=== PATIENT | female | born 1990 | race Caucasian/White ===

== ENCOUNTER 2020-06-08 19:09 | Emergency (ER) | payer BC, SELFPAY ==
[2020-06-08 19:15] VITALS: BP 150/85; PULSE 98; RESP 14; TEMP 37; O2SAT 98
--- NOTE | 2020-06-08 19:41 | ED.URI ---
HPI - URI/Sore Throat General Chief Complaint: Upper Respiratory Infection Stated Complaint: sore throat Time Seen by Provider: 06/08/20 19:25 Source: patient and RN notes reviewed Mode of arrival: ambulatory Limitations: no limitations History of Present Illness HPI Narrative: Patient presents today with a sore throat for 2 days with some mild postnasal drainage. Denies any additional symptoms to include fever, cough, ear pain, congestion or rhinorrhea. Denies shortness of breath or difficulty swallowing. She currently rates her pain 4/10 and states it is intermittent. She has tried no [id number] interventions prior to arrival. No known COVID-19 exposure. MD elicited complaint: sore throat Related Data Home Medications Medication Instructions Recorded Confirmed sertraline 25 mg PO DAILY 06/08/20 06/08/20 Allergies Allergy/AdvReac Type Severity Reaction Status Date / Time Penicillins Allergy Intermediate Hives / Verified 06/08/20 19:25 Red Face Review of Systems Review of Systems: Narrative: CONSTITUTIONAL: Denies body aches, fever, chills, or sweats. EYES: Denies visual changes, redness, or discharge. ENT: Denies rhinorrhea, congestion, or otalgia. + Sore throat, postnasal drip CARDIOVASCULAR: Denies chest pain, palpitations, or edema. RESPIRATORY: Denies cough or dyspnea. GASTROINTESTINAL: Denies abdominal pain, nausea, vomiting, or diarrhea. GENITOURINARY: Denies dysuria or hematuria. SKIN: Denies rash, itching, or wounds. MUSCULOSKELETAL: Denies back pain, joint pain, or myalgia. NEUROLOGIC: Denies headache, numbness, tingling, or weakness. PSYCH: Denies depression or anxiety. FORMERLY [facility] Past Medical History Medical History (Updated 06/08/20 @ 19:46 by Anna Kwok, FISCAL ACCOUNTING CLERK, ) Aortic regurgitation Borderline diabetic Mitral valve prolapse Comments At time of signature, I have reviewed and agree with nursing past medical, surgical, social and family history unless otherwise noted. Please see nursing chart for further information. There is no relevant family history pertinent to the presenting complaint Exam Narrative: Exam Narrative: GENERAL: Well-appearing, well-nourished, and in no acute distress. HEAD: Normocephalic, atraumatic. EYES: EOMI. No redness or drainage. Conjunctivae normal. ENT: Mucous membranes pink and moist. Nares clear. No rhinorrhea. TMs normal bilaterally. Throat mildly erythematous without edema or exudate. Uvula midline. NECK: Normal AROM. Supple. No lymphadenopathy. CHEST: No respiratory distress. Clear to auscultation. HEART: Regular rate and rhythm. No murmur appreciated. Normal peripheral pulses. EXTREMITIES: Normal range of motion. No edema. SKIN: Warm, dry, no rash. Capillary refill normal. Normal skin turgor. NEURO: No focal deficits. Alert and oriented x3. Gait steady. PSYCH: Normal affect. No signs of depression or anxiety. Course Course Emergency Course: Offered COVID-19 testing order and patient accepted. Order faxed to finished stock inspector. Vital Signs Vital signs: Vital Signs Temperature 98.6 F 06/08/20 19:15 Pulse Rate 98 06/08/20 19:15 Respiratory Rate 14 06/08/20 19:15 Blood Pressure 150/85 H 06/08/20 19:15 Pulse Oximetry 98 06/08/20 19:15 Temperature 98.6 F 06/08/20 19:15 Pulse Rate 98 06/08/20 19:15 Respiratory Rate 14 06/08/20 19:15 Blood Pressure 150/85 H 06/08/20 19:15 Pulse Oximetry 98 06/08/20 19:15 Reviewed. Pt has been instructed to follow up with her PCP regarding her elevated blood pressure today. MDM - URI/Sore Throat Differential Diagnosis Differential diagnosis: Likely upper respiratory infection, otitis media, sinusitis, viral infection, pharyngitis and other (Strep throat, COVID-19) Lab Data Labs: Strep Screen Presumptive Negative *(Reference Range: Negative)* Critical Care Time Critical Care Time Critical Care Time: No Discharge Plan Discharge Clinical I
== END 2020-06-08 19:50 | disposition home or self-care (01) ==
PROVIDERS: Emergency Provider Nurse Practitioner; PCP Nurse Practitioner Family
DX: J02.9 Acute pharyngitis, unspecified (principal); I34.1 Nonrheumatic mitral (valve) prolapse; F41.9 Anxiety disorder, unspecified
CPT/HCPCS: 87081; 87880; 99213; G0463

== ENCOUNTER 2020-06-10 07:19 | Outpatient (NON) | payer BC, SELFPAY ==
[2020-06-12 01:36] LABS: SARS-CoV-2 RNA PCR Negative
== END 2020-06-10 07:20 ==
PROVIDERS: PCP Nurse Practitioner Family; Visit Provider Nurse Practitioner
DX: Z20.828 Contact with and (suspected) exposure to other viral communicable diseases (principal); J02.9 Acute pharyngitis, unspecified
CPT/HCPCS: 87635; C9803; U0003

== ENCOUNTER 2021-12-08 10:38 | Emergency (ER) | payer OTHER, SELFPAY ==
--- NOTE | ~2021-12-08 | XR_ITS ---
XR chest 2V DATE: 12/08/2021 10:59 INDICATION: Cough, chest tightness. Covid-positive. TECHNIQUE: PA and lateral views COMPARISON: None FINDINGS: Normal heart size. No hilar or mediastinal enlargement. No pulmonary infiltrate or consolid ation, pleural effusion or pulmonary mass congestion or pneumothorax. Status post cholecystectomy. IMPRESSION: No active cardiac pulmonary disease Status post cholecystectomy Reviewed, dictated and finalized at location A. GUIDE
--- NOTE | 2021-12-08 10:41 | ED.URI ---
HPI - URI/Sore Throat General Chief Complaint: Upper Respiratory Infection Stated Complaint: Day 9 of Covid /worried pnuemonia Time Seen by Provider: 12/08/21 10:41 Source: patient and RN notes reviewed History of Present Illness HPI Narrative: Patient is a 31-year-old female presents the urgent care with complaints of post-COVID cough. Patient states that she was diagnosed with COVID approximately 8 or 9 days ago and has had a continuous cough. Denies any fevers, shortness of breath or chest pain. Patient has been taking her daily allergy medication. No other acute complaints. No acute distress noted. Patient aware of the plan of care. Some parts of this dictation were generated by voice recognition software and may contain typographical and/or grammatical inaccuracies. Related Data Home Medications Medication Instructions Recorded Confirmed sertraline 25 mg PO DAILY 06/08/20 07/03/21 Allergies Allergy/AdvReac Type Severity Reaction Status Date / Time Penicillins Allergy Intermediate Hives / Verified 12/08/21 10:58 Red Face Review of Systems Review of Systems: CONSTITUTIONAL: Denies fever, chills, or sweats. EYES: Denies visual changes, redness, or discharge. ENT: Denies rhinorrhea, congestion, sore throat, or otalgia. CARDIOVASCULAR: Denies chest pain, palpitations, or edema. RESPIRATORY: Reports of nonproductive cough without dyspnea GASTROINTESTINAL: Denies abdominal pain, nausea, vomiting, or diarrhea. GENITOURINARY: Denies dysuria or hematuria. SKIN: Denies rash or itching. MUSCULOSKELETAL: Denies back pain, joint pain, or myalgia. NEUROLOGIC: Denies headache, numbness, or weakness. All other systems reviewed are negative, except as documented in HPI. [facility] Past Medical History Medical History Aortic regurgitation Borderline diabetic Mitral valve prolapse Social History Social History (Updated 07/03/21 @ 15:21 by Idalmis Nicole CMA) Smoking status: Never smoker Alcohol intake: never Substance use: never Comments At the time of my signature, I reviewed and agree with the nursing past medical, surgical, social, and family history. There is no relevant family history pertinent to the patient complaint. Exam Narrative: GENERAL: This is a well-nourished, well-developed patient, in no apparent distress. HEAD: normocephalic, atraumatic. EYES: PERRL. Sclera clear/white. Vision is grossly intact. EARS: External ears normal, auditory canals clear and without drainage, TMs normal without perforation. Hearing grossly intact. NOSE: External nose normal with no obvious nasal discharge, nares without redness, no rhinorrhea. THROAT: Mucous membranes moist, posterior pharynx clear. Mild postnasal drainage NECK: Neck supple CARDIOVASCULAR: Regular rate and rhythm without murmurs, gallops, or rubs. RESPIRATORY: Clear to auscultation. Breath sounds equal bilaterally. No wheezes, rales, or rhonchi. SKIN: warm, intact with no suspicious lesions or rash, good texture and turgor. NEURO: awake, alert, and oriented to person, place and time. There were no obvious focal neurologic abnormalities. EXTREMITIES: No clubbing, cyanosis, or edema. Course Course Level of Care: Express Care Visit Vital Signs Vital signs: Vital Signs Temperature 99.1 F 12/08/21 10:45 Pulse Rate 98 12/08/21 10:45 Respiratory Rate 20 12/08/21 10:45 Blood Pressure 131/75 12/08/21 10:45 Pulse Oximetry 99 12/08/21 10:45 Temperature 99.1 F 12/08/21 10:45 Pulse Rate 98 12/08/21 10:45 Respiratory Rate 20 12/08/21 10:45 Blood Pressure 131/75 12/08/21 10:45 Pulse Oximetry 99 12/08/21 10:45 Reviewed MDM - URI/Sore Throat MDM Narrative Medical decision making narrative: Reviewed x-ray results with the patient. She is aware that x-ray was negative for pneumonia or any abnormality. Patient is aware that postviral cough can last approximate
[2021-12-08 10:45] VITALS: BP 131/75; PULSE 98; RESP 20; TEMP 37.3; O2SAT 99
== END 2021-12-08 11:15 | disposition home or self-care (01) ==
PROVIDERS: Emergency Provider Nurse Practitioner Family; PCP Nurse Practitioner Family
DX: R05.9 Cough, unspecified (principal); U09.9 Post COVID-19 condition, unspecified; I34.1 Nonrheumatic mitral (valve) prolapse; I35.1 Nonrheumatic aortic (valve) insufficiency
CPT/HCPCS: 71046; 99213; G0463

== ENCOUNTER 2022-03-28 16:53 | Emergency (ER) | payer OTHER, SELFPAY ==
--- NOTE | 2022-03-28 16:59 | ED.URI ---
HPI - URI/Sore Throat General Chief Complaint: Upper Respiratory Infection Stated Complaint: sore throat Source: patient and RN notes reviewed Mode of arrival: ambulatory Limitations: no limitations History of Present Illness MD elicited complaint: cough and sore throat Related Data Home Medications Medication Instructions Recorded Confirmed sertraline 25 mg PO DAILY 06/08/20 03/28/22 Allergies Allergy/AdvReac Type Severity Reaction Status Date / Time Penicillins Allergy Intermediate Hives / Verified 12/08/21 10:58 Red Face Review of Systems Review of Systems: CONSTITUTIONAL: Denies malaise, chills, sweats, or fever. EYES: Denies visual changes, redness, or discharge. ENT: Reports rhinorrhea, congestion, sinus pain, otalgia and sore throat. CARDIOVASCULAR: Denies chest pain, palpitations, or edema. RESPIRATORY: Reports cough. Denies dyspnea. GASTROINTESTINAL: Denies abdominal pain, nausea, vomiting, diarrhea SKIN: Denies rash or itching. MUSCULOSKELETAL: Denies myalgia. NEUROLOGIC: Denies headache. All systems reviewed & are unremarkable except as noted in HPI and below PMFSH Past Medical History Medical History Aortic regurgitation Borderline diabetic Mitral valve prolapse Social History Social History (Updated 07/03/21 @ 15:21 by Idalmis Nicole CMA) Smoking status: Never smoker Alcohol intake: never Substance use: never Comments At time of signature, agree with nursing past medical, surgical, social and family history. There is no relevant family history pertinent to the presenting complaint Exam Narrative: GENERAL: Well-appearing, well-nourished, and in no acute distress. HEAD: Normocephalic EYES: PERRLA, conjunctivae clear ENT: Nares clear, turbinates edematous and erythematous, clear discharge. Mucous membranes moist. TM pearly rankin with dull light reflex bilaterally; no tragal tenderness. Oropharynx not erythematous without lesions. Tonsils not enlarged and without exudate, no drooling, no hoarseness, no trismus, uvula midline. NECK: Supple. No lymphadenopathy CHEST: Clear to auscultation, breath sounds equal. No wheezing, rhonchi, rales, or stridor. No respiratory distress, speaks in full sentences. HEART: Regular rate and rhythm. No murmur heard. SKIN: Warm, dry, no rash. NEURO: Alert and oriented x3. PSYCH: Normal mood and affect Course Course Emergency Course: Patient is aware of diagnosis, understands and agrees to treatment plan. Anticipatory guidance given. Patient agrees to follow-up as directed and is aware of reasons to seek care at the emergency department. Portions of this record may have been created with voice recognition software Level of Care: Express Care Visit Vital Signs Vital signs: Reviewed. MDM - URI/Sore Throat MDM Narrative Medical decision making narrative: Differential diagnosis considered: Isbell virus, strep pharyngitis, allergic rhinitis, upper respiratory tract infection, sinusitis, rhinosinusitis, nasopharyngitis. viral pharyngitis, otitis media, otitis externa, pneumonia, bronchitis, viral cough syndrome, viral syndrome, and influenza. Exam findings show no acute concerns or changes; patient is non-toxic appearing and is in no distress. Patient is appropriate for outpatient treatment and follow-up. Lab Data Attestation: I reviewed the patient's lab results. Critical Care Time Critical Care Time Critical Care Time: No Discharge Plan Discharge Clinical Impression: Upper respiratory infection Patient Disposition: Home, Self-Care Condition: Stable Instructions: Upper Respiratory Infection (ED) Additional Instructions: Your rapid strep swab was negative today at [facility]. A throat culture will be sent to the laboratory for further testing. If the test is positive, you will receive a phone call within 48 hours and an appropriate antibiotic will be initiated at that time.
[2022-03-28 17:00] VITALS: BP 128/77; PULSE 95; RESP 16; TEMP 36.7; O2SAT 100
== END 2022-03-28 17:36 | disposition home or self-care (01) ==
PROVIDERS: Emergency Provider Nurse Practitioner; PCP Nurse Practitioner Family
DX: J06.9 Acute upper respiratory infection, unspecified (principal); I34.1 Nonrheumatic mitral (valve) prolapse; I35.1 Nonrheumatic aortic (valve) insufficiency
CPT/HCPCS: 87081; 87880; 99213; G0463

== ENCOUNTER 2022-06-28 10:14 | Emergency (ER) | payer OTHER, SELFPAY ==
--- NOTE | ~2022-06-28 | XR_ITS ---
XR knee RT min 4V DATE: 06/28/2022 10:39 INDICATION: Fall. Right knee generalized pain TECHNIQUE: 4 views including crosstable lateral COMPARISON: None FINDINGS: No fracture or dislocation or joint effusion. No periosteal reaction or bone destruction. J oint spaces are preserved. No radiopaque intra-articular loose body or chondrocalcinosis. IMPRESSION: Negative Reviewed, dictated and finalized at location B. IMPRESSION: Negative
[2022-06-28 10:18] VITALS: BP 130/74; PULSE 80; RESP 18; TEMP 36.6; O2SAT 100
--- NOTE | 2022-06-28 10:47 | ED.LOWEXIN ---
HPI - Extremity Injury (Lower) General Chief Complaint: Extremity Injury, Lower Stated Complaint: right knee injury Time Seen by Provider: 06/28/22 10:47 Source: patient, RN notes reviewed and old records reviewed Mode of arrival: ambulatory Limitations: no limitations History of Present Illness HPI Narrative: 32 year old female who presents to express care with complaints of falling down her step at home this morning. Patient reports that she rolled her ankle while having wedge shoes on and fell directly onto her right knee.Patient voices pain to the anterior aspect of her right knee with abrasion noted on anterior knee. Patient reports that she is able to apply weight to her right leg and is able to bend knee without acute pain.Patient reports pain increases when not active. MD complaint: knee injury Onset (ago): hour(s) (1) Injury: Right: knee (anterior) Type of Injury: blunt Treatments prior to arrival: cold therapy and other (Tylenol) Related Data Home Medications Medication Instructions Recorded Confirmed sertraline 25 mg tablet 25 mg PO DAILY 06/08/20 06/28/22 Allergies Allergy/AdvReac Type Severity Reaction Status Date / Time Penicillins Allergy Intermediate Hives / Verified 06/28/22 10:40 Red Face Review of Systems Review of Systems: CONSTITUTIONAL: Denies fever, chills, or sweats. EYES: Denies visual changes, redness, or discharge. ENT: Denies rhinorrhea, congestion, sore throat, or otalgia. CARDIOVASCULAR: Denies chest pain, palpitations, or edema. RESPIRATORY: Denies cough or dyspnea. GASTROINTESTINAL: Denies abdominal pain, nausea, vomiting, or diarrhea. GENITOURINARY: Denies dysuria or hematuria. SKIN: Denies rash or itching. MUSCULOSKELETAL: Denies back pain,positive for right anterior pain, or myalgia. NEUROLOGIC: Denies headache, numbness, or weakness. PSYCHIATRIC: Positive history of anxiety or depression. All systems reviewed & are unremarkable except as noted in HPI and below PMFSH Past Medical History Medical History (Updated 06/29/22 @ 14:24 by Sofya Duval NP) Anxiety Aortic regurgitation Borderline diabetic Mitral valve prolapse Surgical History Surgical History (Updated 06/29/22 @ 14:25 by Sofya Duval NP) History of tonsillectomy Hx of cholecystectomy Social History Social History (Updated 08/13/22 @ 14:25 by Sofya Duval NP) Smoking status: Never smoker Alcohol intake: never Substance use: never Living arrangements: with family Gender identity (if verbalized by the patient): Female Comments At time of signature, agree with nursing past medical, surgical, social and family history. There is no relevant family history pertinent to the presenting complaint Exam Narrative: GENERAL: Well-appearing, well-nourished, and in no acute distress. HEAD: Normocephalic, atraumatic. EYES: PERRLA and EOMI. ENT: Nares clear, no rhinorrhea or epistaxis. Mucous membranes moist.TM's normal, throat pink with no lesions or exudates tonsils absent NECK: Supple.no lymphadenopathy CHEST: Clear to auscultation. No respiratory distress.SAO2 100% on room air HEART: Regular rate and rhythm. No murmur heard. Normal peripheral pulses. ABDOMEN: Soft, nontender, nondistended, normal active bowel sounds. EXTREMITIES: Normal range of motion. No edema.Pain anterior aspect of right knee with abrasion to knee cap.Patient is able to stand on right leg and is able to bend knee without acute pain, no increase pain with inversion or eversion maneuvers, no acute swelling present SKIN: Warm, dry, no rash.abrasion to anterior knee no acute bleeding noted. NEURO: No focal deficits. Alert and oriented x3. Course Course Level of Care: Express Care Visit Vital Signs Vital signs: Vital Signs Temperature 36.6 C 06/28/22 10:18 Pulse Rate 80 06/28/22 10:18 Respiratory Rate 18 06/28/22 10:18 Blood Pressure 130/74 06/28/22 10:18 Pulse Oximetry 100 06/28/22 10:18 Oxygen De
== END 2022-06-28 11:10 | disposition home or self-care (01) ==
PROVIDERS: Emergency Provider Registered Nurse; PCP Nurse Practitioner Family
DX: S80.01XA Contusion of right knee, initial encounter (principal); W10.9XXA Fall (on) (from) unspecified stairs and steps, initial encounter; F41.9 Anxiety disorder, unspecified; I34.1 Nonrheumatic mitral (valve) prolapse; I35.1 Nonrheumatic aortic (valve) insufficiency
CPT/HCPCS: 73564; 99213; G0463

== ENCOUNTER 2023-02-24 15:02 | Emergency (ER) | payer OTHER, SELFPAY ==
[2023-02-24 15:06] VITALS: BP 121/65; PULSE 84; RESP 20; TEMP 37.3; O2SAT 100
--- NOTE | 2023-02-24 15:20 | ED.GENADULT ---
HPI - General Adult General Chief complaint: Unspecified Stated complaint: Fatigue Source: patient and RN notes reviewed History of Present Illness HPI narrative: 32-year-old female presents to urgent care complaints fatigue for the last 3 weeks. Patient states she had an abnormally long menstrual period in January that is still occurring. Patient states it is getting better however she still has vaginal bleeding. 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 Patient states she woke up this morning with tongue swelling that resolved with the Benadryl. Patient reports some intermittent dizziness and shortness of breath at times. Patient denies any chest pain, fevers, chills, dysuria, any chance of being , abdominal pain, sore throat, or trouble breathing. Some parts of this dictation were generated by voice recognition software and may contain typographical and/or grammatical inaccuracies. Related Data Home Medications Medication Instructions Recorded Confirmed sertraline 25 mg tablet 25 mg PO DAILY 06/08/20 06/28/22 Allergies Allergy/AdvReac Type Severity Reaction Status Date / Time Penicillins Allergy Intermediate Hives / Verified 02/24/23 15:23 Red Face Review of Systems Review of Systems: Pertinent positives and pertinent negatives per HPI. FORMERLY [facility] Past Medical History Medical History (Updated 02/24/23 @ 15:48 by Pamela Willis APRN) Anxiety Aortic regurgitation Borderline diabetic Mitral valve prolapse Surgical History Surgical History (Updated 06/29/22 @ 14:25 by Sofya Duval NP) History of tonsillectomy Hx of cholecystectomy Social History Social History (Updated 06/29/22 @ 14:25 by Sofya Duval NP) Smoking status: Never smoker Alcohol intake: never Substance use: never Living arrangements: with family Gender identity (if verbalized by the patient): Female Comments At the time of my signature, I reviewed and agree with the nursing past medical, surgical, social, and family history. There is no relevant family history pertinent to the patient complaint. Exam Narrative: GENERAL: This is a well-nourished, well-developed patient, in no apparent distress. HEAD: normocephalic, atraumatic. EYES: Sclera clear/white. Vision is grossly intact. EARS: External ears normal, auditory canals clear and without drainage, TMs normal without perforation. Hearing grossly intact. NOSE: External nose normal with no obvious nasal discharge, nares without redness, no rhinorrhea. THROAT: Mucous membranes moist, posterior pharynx clear. NECK: Neck supple, non-tender without lymphadenopathy, masses or thyromegaly. CARDIOVASCULAR: Regular rate and rhythm without murmurs, gallops, or rubs. RESPIRATORY: Clear to auscultation. Breath sounds equal bilaterally. No wheezes, rales, or rhonchi. GASTROINTESTINAL: Abdomen soft, non-tender, nondistended. Bowel sounds are active. No hepato-splenomegaly, or palpable masses. No guarding. SKIN: warm, intact with no suspicious lesions or rash, good texture and turgor. NEURO: awake, alert, and oriented to person, place and time. There were no obvious focal neurologic abnormalities. BACK: Nontender without deformity or crepitance. No flank tenderness. Course Course Level of Care: Express Care Visit Vital Signs Vital signs: Vital Signs Temperature 99.1 F 02/24/23 15:06 Pulse Rate 84 02/24/23 15:06 Respiratory Rate 20 02/24/23 15:06 Blood Pressure 121/65 02/24/23 15:06 Pulse Oximetry 100 02/24/23 15:06 Oxygen Delivery Room Air 02/24/23 15:06 Temperature 99.1 F 02/24/23 15:06 Pulse Rate 84 02/24/23 15:06 Respiratory Rate 20 02/24/23 15:06 Blood Pressure 121/65 02/24/23 15:06 Pulse Oximetry 100 02/24/23 15:06 Oxygen Delivery Room Air 02/24/23 15:06 Reviewed Medical Decision Making MDM Narrative Medical decision making narrative: Jean
== END 2023-02-24 15:58 | disposition home or self-care (01) ==
PROVIDERS: Emergency Provider Nurse Practitioner Family; PCP Nurse Practitioner Family
DX: R53.83 Other fatigue (principal)
CPT/HCPCS: 99211; G0463

== ENCOUNTER 2023-05-31 08:29 | Emergency (ER) | payer OTHER, SELFPAY ==
--- NOTE | 2023-05-31 08:33 | ED.FEMALEGU ---
HPI - Female Genitourinary General Chief complaint: Urogenital-Female Stated complaint: uti Time Seen by Provider: 05/31/23 08:32 Source: patient Mode of arrival: ambulatory Limitations: no limitations History of Present Illness HPI Narrative: Genet is a 32-year-old female patient presenting to the clinic today with complaints of possible urinary tract infection x1 day. She reports symptoms really hit her hard last night. She has been drinking a lot of cranberry juice. Reports burning, frequency, and urgency. She denies any fever or chills or flank pain with does have some lower abdominal discomfort. States she has been getting UTIs frequently-3 UTIs within the last 6 months. Related Data Home Medications Medication Instructions Recorded Confirmed sertraline 25 mg tablet 25 mg PO DAILY 06/08/20 02/24/23 Allergies Allergy/AdvReac Type Severity Reaction Status Date / Time Penicillins Allergy Intermediate Hives / Verified 05/31/23 08:38 Red Face nitrofurantoin Allergy Unknown Verified 05/31/23 08:38 [From [email or web address]] Review of Systems Review of Systems: Pertinent positives per HPI. Patient denies any fever, chills, rash, headache, visual changes, dizziness, cough, runny nose, sore throat, shortness of breath, chest pain, palpitations, nausea, vomiting, diarrhea, constipation PMFSH Past Medical History Medical History Anxiety Aortic regurgitation Borderline diabetic Mitral valve prolapse Surgical History Surgical History History of tonsillectomy Hx of cholecystectomy Social History Social History Smoking status: Never smoker Alcohol intake: never Substance use: never Living arrangements: with family Gender identity (if verbalized by the patient): Female Comments At the time of my signature, I reviewed and agree with the nursing past medical, surgical, social, and family history. There is no relevant family history pertinent to the patient complaint. Exam Narrative: General: Well-developed, well nourished, in no apparent distress. Head: Normocephalic, atraumatic. Cardio: Regular rate and rhythm, s1 and s2 normal, no murmur appreciated. Resp: Clear to auscultation bilaterally, no rhonchi, rales, wheezing or rubs. Abdomen: Soft, pliable, bowel sounds present in all quadrants, mild suprapubic tender to palpation, no organomegly, no CVAT tenderness. Course Course Emergency Course: Portions of this record may have been created with voice recognition software. Level of Care: Express Care Visit Vital Signs Vital signs: Vital signs reviewed MDM - Female Genitourinary MDM Narrative Medical decision making narrative: At the time of visit patient is resting comfortably on the exam table. Urinalysis was performed and shows leukocytes, nitrates, and blood. Will place patient on Bactrim and Diflucan as she does get yeast infections while taking antibiotics. Recommend patient follow-up with a urologist as she has had 3 UTIs within the last 6 months. Supportive measures were discussed with the patient and she voiced understanding. Differential Diagnosis Differential diagnosis: Likely urinary tract infection and cystitis Discharge Plan Discharge Clinical Impression: Urinary tract infection Patient Disposition: Home, Self-Care Condition: Stable Instructions: Antibiotic Form, Urinary Tract Infection in Women (ED) Additional Instructions: UA positive for leukocytes, blood, and nitrates. We will send for culture Take Bactrim as prescribed Take Diflucan as prescribed Increase fluids and stay well hydrated Wipe front to back. May use wet wipes. Avoid tub baths If sexually active- pee before and after intercourse. Wear cotton panties Avoid tight clothing up against the
[2023-05-31 08:34] VITALS: BP 127/70; PULSE 81; RESP 20; TEMP 36.2; O2SAT 97
== END 2023-05-31 08:53 | disposition home or self-care (01) ==
PROVIDERS: Emergency Provider Nurse Practitioner Family; PCP Nurse Practitioner Family
DX: N39.0 Urinary tract infection, site not specified (principal); F41.9 Anxiety disorder, unspecified; I35.1 Nonrheumatic aortic (valve) insufficiency; I34.1 Nonrheumatic mitral (valve) prolapse
CPT/HCPCS: 81003; 87077; 87086; 87186; 99213; G0463

== ENCOUNTER 2023-12-20 09:39 | Emergency (ER) | payer OTHER, SELFPAY ==
[2023-12-20 09:49] VITALS: BP 144/79; PULSE 88; RESP 16; TEMP 36.7; O2SAT 99
--- NOTE | 2023-12-20 10:35 | ED.URI ---
HPI - URI/Sore Throat General Chief Complaint: Upper Respiratory Infection Stated Complaint: sinus/chest tight Source: patient, RN notes reviewed and old records reviewed Mode of arrival: ambulatory Limitations: no limitations History of Present Illness HPI Narrative: 33 year old female who presents to [facility] care with complaints of one week duration of cough, congestion,sinus drainage,feeling hot and cold with no known fevers, feels symptoms have increased since Friday.. Patient reports that she has had some sinus congestion with greenish drainage, and has expectorated some brownish tinged phlegm. Patient reports that she has been taking Mucinex, Tylenol and Zyrtec for her symptoms. MD elicited complaint: cough, rhinorrhea and nasal congestion Pertinent past history: seasonal allergies Onset (ago): week(s) (1 week) Consistency: progressively worsening Pain scale (0-10): 4 Description of mucous: green and other (brownish phlegm) Able to tolerate fluids by mouth: Yes Treatments prior to arrival: acetaminophen and other (Mucinex, Zyrtec) Related Data Home Medications Medication Instructions Recorded Confirmed sertraline 25 mg tablet 25 mg PO DAILY 06/08/20 02/24/23 Otc Acid Manager Floral 12/20/23 Otc Allergy Med. 12/20/23 Otc Iron Supplement 12/20/23 cholecalciferol (vitamin D3) 50 12/20/23 mcg (2,000 unit) capsule Allergies Allergy/AdvReac Type Severity Reaction Status Date / Time Penicillins Allergy Intermediate Hives / Verified 12/20/23 09:58 Red Face nitrofurantoin Allergy Unknown Verified 12/20/23 09:58 [From Macrobid] Review of Systems Review of Systems: CONSTITUTIONAL: Reports malaise, chills, sweats, no known fever. EYES: Denies visual changes, redness, or discharge. ENT: Reports rhinorrhea, congestion, sinus pain, no otalgia and no sore throat. CARDIOVASCULAR: Denies chest pain, palpitations, or edema. RESPIRATORY: Reports cough.? Denies dyspnea. GASTROINTESTINAL: Denies abdominal pain, nausea, vomiting, diarrhea SKIN: Denies rash or itching. MUSCULOSKELETAL: Denies myalgia. NEUROLOGIC: Denies headache. All systems reviewed & are unremarkable except as noted in HPI and below PMFSH Past Medical History Medical History Anxiety Aortic regurgitation Borderline diabetic Mitral valve prolapse Surgical History Surgical History History of tonsillectomy Hx of cholecystectomy Social History Social History Smoking status: Never smoker Alcohol intake: never Substance use: never Living arrangements: with family Gender identity (if verbalized by the patient): Female Comments At time of signature, agree with nursing past medical, surgical, social and family history. There is no relevant family history pertinent to the presenting complaint Exam Narrative: GENERAL: Well-appearing, well-nourished, and in no acute distress. HEAD: Normocephalic EYES: PERRLA, conjunctivae clear ENT: Nares clear, turbinates edematous and erythematous, greenish discharge, sinus pressure. Mucous membranes moist. TM pearly rankin with dull light reflex bilaterally; no tragal tenderness. Oropharynx erythematous without lesions. Tonsils not enlarged and without exudate, no drooling, no hoarseness, no trismus, uvula midline.post nasal drainage noted. NECK: Supple. No lymphadenopathy CHEST: Clear to auscultation, breath sounds equal. No wheezing, rhonchi, rales, or stridor. No respiratory distress, speaks in full sentences.cough, SAO2 99% on room air HEART: Regular rate and rhythm. No murmur heard. SKIN: Warm, dry, no rash. NEURO: Alert and oriented x3. PSYCH: Normal mood and affect Course Course Emergency Course: Patient is aware of diagnosis, understands and agrees to treatment plan.? Anticipatory guid
== END 2023-12-20 10:42 | disposition home or self-care (01) ==
PROVIDERS: Emergency Provider Registered Nurse; PCP Nurse Practitioner Family
DX: J32.9 Chronic sinusitis, unspecified (principal); F41.9 Anxiety disorder, unspecified; I34.1 Nonrheumatic mitral (valve) prolapse; I35.1 Nonrheumatic aortic (valve) insufficiency; R73.03 Prediabetes
CPT/HCPCS: 99213; G0463

== ENCOUNTER 2025-01-31 18:50 | Emergency (ER) | payer OTHER, SELFPAY ==
[2025-01-31 19:02] VITALS: BP 149/85; PULSE 87; RESP 16; TEMP 36.6; O2SAT 99
--- OUTSIDE RECORDS SUMMARY | 2025-01-31 19:20 | XMS_ITS | Clinical Summary ---
Author Organization [facility] Address [address] [place] [address] Care Team Providers Care Bridge Game Director Name Role Phone Haydee Armenta DIRECTOR SOCIAL Primary Care Provider Allergies Active Allergy Reactions Criticality Noted Date Comments Nitrofurantoin Hives Medium 12/22/2024 Penicillins Rash,Urticaria Medium 08/06/2018 Reaction: Rash, , Medications sertraline (ZOLOFT) 25 mg tablet 06/15/2020 Active cholecalciferol (VITAMIN D-3) 2000 unit capsule 1 capsule (2,000 Units total) Active Active Problems Problem Noted Date Diagnosed Date Dyspnea on exertion 01/19/2024 Labile hypertension 01/19/2024 Palpitations 11/19/2021 Mitral valve prolapse 06/26/2020 Nonrheumatic tricuspid valve regurgitation 06/26 Dietary counseling 06/26/2020 Encounters Date Type Department Care Team Description 12/22/2024 3:00 PM RECLAMATION SUPERVISOR Office Visit [facility] Diabetes Endocrine Care at [address] [place] [id number] Yohana Bernard DO Anti-TPO antibodies present 11/05/2024 1:12 PM RECLAMATION SUPERVISOR - 11/05/2024 11:59 PM RECLAMATION SUPERVISOR Hospital Encounter [facility] [address] [place] [address] Unspecified lump in right breast, subareolar Discharge Disposition: Discharge to home or self care 11/05/2024 1:12 PM RECLAMATION SUPERVISOR - 11/05/2024 11:59 PM RECLAMATION SUPERVISOR Hospital Encounter [facility] [address] [place] [address] Unspecified lump in right breast, subareolar Discharge Disposition: Discharge to home or self care from Last 3 Months Surgical History Surgery Date Site/Laterality Comments CHOLECYSTECTOMY 2010 Cholecystectomy Medical History Medical History Date Comments Hx Other Medical 2010 Mitral valve pr olapse Mitral valve prolapse Gallstones Anxiety and depression Arthritis GERD (gastroesophageal reflux disease) Diabetes mellitus (HCC) Borderline Migraines Family History Medical History Relation Name Comments Asthma Daughter Jimmy Godoy Diabetes Father Ciro [place] II Diabetes melli tus; Hypertension Father Ciro [place] II Hypertension; Other Father Ciro [place] II Alive and well ; Cancer Maternal Grandfather Mahin Glass Diabetes Maternal Grandfather Mahin Glass Heart disease Maternal Grandfather Mahin Glass Hypertension Maternal Grandfather Mahin Glass Memory loss Maternal Grandfather Mahin Glass Breast cancer Maternal Grandmother Ivone Glass Cancer Maternal Grandmother Ivone Glass Other Mother Alive and well; Diabetes Mother's Sister 1 Iona Dehne Diabetes Mother's Sister 2 Thalia Couch Diabetes Paternal Grandfather Ciro [place] Hypertension Paternal Grandfather Ciro Soler Breast cancer Paternal Grandmother Saima Proctor Cancer Paternal Grandmother Saima Proctor Relation Name Status Comments Brother Alive Daughter Jimmy Godoy Father Ciro [place] II Alive Maternal Grandfather Mahin Glass Maternal Grandmother Ivone Glass Mother Alive Mother's Sister 1 Iona Dehne Mother's Sister 2 Thalia Couch Paternal Grandfather Ciro Karlene Paternal Grandmother Saima Proctor Social History Tobacco Use Types Packs/Day Years Used Date Smoking Tobacco: Never Smokeless Tobacco: Never Tobacco Cessation:Counseling Given: Not Answered Alcohol Use Standard Drinks/Week Comments No 0 (1 standard drink = 0.6 oz pur e alcohol) Comments No Sex and Gender Information Value Date Recorded Sex Assigned at Not on file Legal Sex Female 11:28 PM RECLAMATION SUPERVISOR Gender Identity Not on file Sexual Orientation Not on file Obstetrics History Para Term AB IAB SAB Ectopic Multiple Livin g Live Births 3 3 3 Date Outcome GA Total Labor Labor/2nd/3rd Weight Sex Type Anes PTL Roseanna A1 A5 Name Clin Term Term Term Last Filed Vital Signs Vital Sign Reading Time Taken Comments Blood Pressure 106/58 12/22/2024 2:55 PM RECLAMATION SUPERVISOR Pulse 90 12/22/2024 2:55 PM RECLAMATION SUPERVISOR Temperature 36 C (96.8 F) 11/19/2022 9:32 PM RECLAMATION SUPERVISOR Respiratory Rate 15 11/19/2022 9:32 PM RECLAMATION SUPERVISOR Oxygen Saturation 98% 01/19/2024 10:06 AM RECLAMATION SUPERVISOR Inhaled Oxygen Concentration - - Weight 94 kg (207 lb 4.8 oz) 12/22/2024 2:55 PM RECLAMATION SUPERVISOR Height 154.9 cm (5' 1 ) 12/22/2024 2:55 PM RECLAMATION SUPERVISOR Body Mass Index 39.17 12/22/2024 2:55 PM RECLAMATION SUPERVISOR Plan of Treatment Health Maintenance Due Date Last Done Comments Cervical Cancer Screening 1988 Depression Screening 1988 Hepatitis C Screening 1988 DTaP/Tdap/Td Vaccine (1 - Tdap) 1999 Varicella Vaccines (1 of 2 - 13+ 2-dose series) 2001 Hepatitis B Screening 2006 Regular Well Visit/Exam 18-64 2006 Influenza Vaccine (#1) 2024 3, 08/17/2016, 12/04/2013 HPV Vaccines Aged Out No longer eligi ble based on patient's age to complete this topic Pneumococcal vaccine <65 Aged Out No longer eligible based on patient's age to complete this topic Procedures Procedure Name Priority Date/Time Associated Diagnosis Comments US BREAST RIGHT LIMITED Schedule Routine, Read Routine (OP Routine) 11/05/2024 2:31 PM RECLAMATION SUPERVISOR Unspecified lump in right breast, subareolar DIAGNOSTIC MAMMOGRAM BILATERAL W MAKSIM Schedule Routine, Read Routine (OP Routine) 11/05/2024 1:36 PM RECLAMATION SUPERVISOR Unspecified lump in right breast, subareolar from Last 3 Months Results * US Breast Right Limited (11/05/2024 2:31 PM RECLAMATION SUPERVISOR) Anatomical Region Laterality Modality Breast Right Ultrasound 11/05/2024 2:49 PM RECLAMATION SUPERVISOR Impressions 11/05/2024 2:49 PM RECLAMATION SUPERVISOR Focal asymmetry in the upper slightly outer right breast is probably benign. No mammographic or sonographic abnormality at the site of the palpable focus. OVERALL FINAL ASSESSMENT: BI-RADS Category 3: Probably Benign. RECOMMENDATION: The patient should return in 6 months time for a diagnostic right mammogram to document stability. The palpable abnormality should be managed clinically. Electronically signed by: Alpa Scherer M.D. Narrative 11/05/2024 2:49 PM RECLAMATION SUPERVISOR EXAMINATION: BILATERAL DIGITAL DIAGNOSTIC MAMMOGRAM INCLUDING CAD AND BILATERAL DIGITAL BREAST TOMOSYNTHESIS; RIGHT BREAST SONOGRAM HISTORY: Palpable area right breast, baseline study COMPARISON: Baseline study TECHNIQUE: Full field digital mammographic views of BOTH breasts were performed, including computer aided detection (CAD) and BILATERAL digital breast tomosynthesis (DBT). Directed ultrasound evaluation of the RIGHT breast was performed. BREAST PARENCHYMAL COMPOSITION: The breasts are heterogeneously dense, which may obscure small masses. MAMMOGRAM FINDINGS: There is focal asymmetry in the outer upper right breast. This has the appearance of asymmetric fibroglandular tissue. There is no mass, suspicious microcalcification or area of architectural distortion identified bilaterally. Specifically, no focal abnormalities appreciated in the subareolar tissues of the right breast. SONOGRAM FINDINGS: Targeted right breast ultrasound was performed in the regions of interest. No sonographic abnormalities appreciated in the region of the palpable focus. An incidental note is made of a 3 mm simple cyst at the 2 o'clock position 3 cm from the nipple. Additionally, scanning of the 11 o'clock position 6 to 9 cm from the nipple demonstrates a dense band of echogenic fibroglandular tissue. This correlates with the mammographic finding. us Derek Almanza MD IMG MAMMO PROCEDURES F inal Result * Diagnostic Mammogram Bilateral W Maksim (11/05/2024 1:36 PM RECLAMATION SUPERVISOR) Anatomical Region Laterality Modality Breast Bilateral Mammography 11/05/2024 2:49 PM RECLAMATION SUPERVISOR Impressions 11/05/2024 2:49 PM RECLAMATION SUPERVISOR Focal asymmetry in the upper slightly outer right breast is probably benign. No mammographic or sonographic abnormality at the site of the palpable focus. OVERALL FINAL ASSESSMENT: BI-RADS Category 3: Probably Benign. RECOMMENDATION: The patient should return in 6 months time for a diagnostic right mammogram to document stability. The palpable abnormality should be managed clinically. Electronically signed by: Alpa Scherer M.D. Narrative 11/05/2024 2:49 PM RECLAMATION SUPERVISOR EXAMINATION: BILATERAL DIGITAL DIAGNOSTIC MAMMOGRAM INCLUDING CAD AND BILATERAL DIGITAL BREAST TOMOSYNTHESIS; RIGHT BREAST SONOGRAM HISTORY: Palpable area right breast, baseline study COMPARISON: Baseline study TECHNIQUE: Full field digital mammographic views of BOTH breasts were performed, including computer aided detection (CAD) and BILATERAL digital breast tomosynthesis (DBT). Directed ultrasound evaluation of the RIGHT breast was performed. BREAST PARENCHYMAL COMPOSITION: The breasts are heterogeneously dense, which may obscure small masses. MAMMOGRAM FINDINGS: There is focal asymmetry in the outer upper right breast. This has the appearance of asymmetric fibroglandular tissue. There is no mass, suspicious microcalcification or area of architectural distortion identified bilaterally. Specifically, no focal abnormalities appreciated in the subareolar tissues of the right breast. SONOGRAM FINDINGS: Targeted right breast ultrasound was performed in the regions of interest. No sonographic abnormalities appreciated in the region of the palpable focus. An incidental note is made of a 3 mm simple cyst at the 2 o'clock position 3 cm from the nipple. Additionally, scanning of the 11 o'clock position 6 to 9 cm from the nipple demonstrates a dense band of echogenic fibroglandular tissue. This correlates with the mammographic finding. Derek Almanza MD IM MAMMO PROCEDURES F inal Result from Last 3 Months Insurance [facility] [employer] [facility] [employer] CHOICE PLUS Care Teams Bridge Game Director Relationship Specialty Start Date End Date Haydee Armenta NP [address] [place] [id number] PCP - General 06/18/20
--- OUTSIDE RECORDS SUMMARY | 2025-01-31 19:20 | XMS_ITS | Referral Summary ---
Author Organization [facility] Address [address] [place] [address] Care Team Providers Care Logging Supervisor Name Role Phone Mercedes Scott Primary Care Provider [phone] Source Comments [facility],non-owned Affiliates and Associated Physician Practices is amultiple site organization consisting of ambulatory clinics and hospital sitesin [place], [place], [place] and [place]. This disclosure is being madepursuant to the Care Everywhere program and may not contain all information available regarding this patient. Last updated 18.[facility] Allergies Active Allergy Reactions Criticality Noted Date Comments Penicillins Urticaria Medium 08/06/2018 Medications * Be aware that medications may not be up to date on this document. Alwaysverify current medications with the patient. Medication Sig Dispensed Refills Start Date End Date Status SERTRALINE HCL PO Active Fluticasone Propionate (FLONASE NA) Active Social History Tobacco Use Types Packs/Day Years Used Date Smoking Tobacco: Never Smokeless Tobacco: Never Tobacco Cessation:Counseling Given: No Alcohol Use Standard Drinks/Week Comments No 0 (1 standard drink = 0.6 oz pur e alcohol) Sex and Gender Information Value Date Recorded Sex Assigned at Not on file Gender Identity Not on file Sexual Orientation Not on file Last Filed Vital Signs Vital Sign Reading Time Taken Comments Blood Pressure 118/76 03/12/2019 11:08 AM CDT Pulse 88 03/12/2019 11:08 AM CDT Temperature 36.7 C (98.1 F) 03/12/2019 11:08 AM CDT Respiratory Rate 16 03/12/2019 11:08 AM CDT Oxygen Saturation 98% 03/12/2019 11:08 AM CDT Inhaled Oxygen Concentration - - Weight 86.2 kg (190 lb) 03/12/2019 11:08 AM CDT Height 154.9 cm (5' 1 ) 03/12/2019 11:08 AM CDT Body Mass Index 35.9 03/12/2019 11:08 AM CDT Plan of Treatment Not on file Care Teams Logging Supervisor Relationship Specialty Start Date End Date Mercedes Scott PA [address] [place] [address] PCP - General 08/06/18
--- OUTSIDE RECORDS SUMMARY | 2025-01-31 19:20 | XMS_ITS | Clinical Summary ---
Author Organization [facility] Address [address] [place] [address] Care Team Providers Care Cornice Maker Name Role Phone Mercedes Scott Primary Care Provider [phone] Source Comments [facility],non-owned Affiliates and Associated Physician Practices is amultiple site organization consisting of ambulatory clinics and hospital sitesin [place], [place], [place] and [place]. This disclosure is being madepursuant to the Care Everywhere program and may not contain all information available regarding this patient. Last updated 18.[facility] Allergies Active Allergy Reactions Criticality Noted Date Comments Penicillins Urticaria Medium 08/06/2018 Medications * Be aware that medications may not be up to date on this document. Alwaysverify current medications with the patient. Medication Sig Dispensed Refills Start Date End Date Status SERTRALINE HCL PO Active Fluticasone Propionate (FLONASE NA) Active Family History Medical History Relation Name Comments Diabetes - Type 2 Father Hypertension Father Cancer - Breast Maternal Grandmother Cancer - Breast Paternal Grandmother Asthma Neg Hx Autoimmune Disease Neg Hx Bipolar Disorder Neg Hx Cancer - Colon Neg Hx Cancer - Other Neg Hx Cancer - Ovarian Neg Hx Cancer - Pancreatic Neg Hx Cancer - Prostate Neg Hx Depression Neg Hx Eczema Neg Hx Migraine Neg Hx Osteoporosis Neg Hx Seizures Neg Hx Sudd. <30 Neg Hx Thyroid Disease Neg Hx Ulcerative Colitis Neg Hx Relation Name Status Comments Father Alive Maternal Grandmother Alive Mother Alive Paternal Grandmother Alive Social History Tobacco Use Types Packs/Day Years [...] 03/12/2019 11:08 AM CDT Plan of Treatment Health Maintenance Due Date Last Done Comments HIV SCREENING 2003 HEPATITIS C SCREENING 06/01/2006 DTAP/TDAP/TD VACCINES (1 - Tdap) 2007 HEPATITIS B VACCINE (1 of 3 - 19+ 3-dose series) 2007 COVID-19 VACCINE ( - 2023-2 5 season) 2024 INFLUENZA VACCINE (#1) 2024 DEPRESSION SCREENING 11/17/2024 ZOSTER VACCINE (1 of 2) 2038 HIB VACCINE Aged Out No longer eligi ble based on patient's age to complete this topic HPV VACCINE Aged Out No longer eligi ble based on patient's age to complete this topic MENINGOCOCCAL (Group B) VACC INE SHARED DECISION-MAKING Aged Out No longer eligibl e based on patient's age to complete this topic MENINGOCOCCAL GROUPS A/C/Y/W VACCINE Aged Out No longer eligible b ased on patient's age to complete this topic PNEUMOCOCCAL VACCINE Aged Out No long er eligible based on patient's age to complete this topic Care Teams Cornice Maker Relationship Specialty Start Date End Date Mercedes Scott PA [address] [place] [address] PCP - General 08/06/18
--- OUTSIDE RECORDS SUMMARY | 2025-01-31 19:20 | XMS_ITS | Encounter Summary ---
Author Organization [facility] Address [address] [place] [address] Phone Care Team Providers Care Securities Teller Name Role Phone Haydee Armenta APRN, CNP Primary Care Provider [phone] Encounter Details Date Type Department Care Team (Latest Contact Info) Description 09/16/2023 Transcribe Orders [facility] Scheduling [address] [place] [address] Haydee Armenta APRN, CNP [address] [place] [address] Non-rheumatic tricuspid valve insufficiency (Primary Dx) Social History Tobacco Use Types Packs/Day Years Used Date Smoking Tobacco: Never Smokeless Tobacco: Never Alcohol Use Standard Drinks/Week Comments Never 0 (1 standard drink = 0.6 oz pur e alcohol) Comments Unknown Sex and Gender Information Value Date Recorded Sex Assigned at Not on file Legal Sex Female 11:53 PM CDT Gender Identity Not on file Sexual Orientation Not on file documented as of this encounter Plan of Treatment Not on file documented as of this encounter Visit Diagnoses Diagnosis Non-rheumatic tricuspid valve insufficiency- Primary Tricuspid valve disorders, specified as nonrheumatic documented in this encounter Care Teams Securities Teller Relationship Specialty Start Date End Date Haydee Armenta APRN, CNP [address] [place] [address] PCP - General Family Medicine 12/12/20 documented as of this encounter
--- OUTSIDE RECORDS SUMMARY | 2025-01-31 19:20 | XMS_ITS | Referral Summary ---
Author Organization [facility] Address [address] [place] [address] Care Team Providers Care Speech Correction Assistant Name Role Phone KathiCedHaydeebrigitte Redmond SHEEP KILLER Primary Care Provider Encounters Date Type Department Care Team Description 12/22/2024 3:00 PM FLOWER SHOP MANAGER Office Visit [facility] Diabetes Endocrine Care at [address] [place] [phone] Yohana Bernard DO Anti-TPO antibodies present 11/05/2024 1:12 PM FLOWER SHOP MANAGER - 11/05/2024 11:59 PM FLOWER SHOP MANAGER Hospital Encounter [address] [address] Unspecified lump in right breast, subareolar Discharge Disposition: Discharge to home or self care 11/05/2024 1:12 PM FLOWER SHOP MANAGER - 11/05/2024 11:59 PM FLOWER SHOP MANAGER Hospital Encounter [address] [address] Unspecified lump in right breast, subareolar Discharge Disposition: Discharge to home or self care from Last 3 Months Allergies Active Allergy Reactions Criticality Noted Date [...] tricuspid valve regurgitation 06/26 Dietary counseling 06/26/2020 Social History Tobacco Use Types Packs/Day Years Used Date Smoking Tobacco: Never Smokeless Tobacco: Never Tobacco Cessation:Counseling Given: Not Answered Alcohol Use Standard Drinks/Week Comments No 0 (1 standard drink = 0.6 oz pur e alcohol) Comments No Sex and Gender Information Value Date Recorded Sex Assigned at Not on file Legal Sex Female 11:28 PM FLOWER SHOP MANAGER Gender Identity Not on file Sexual Orientation Not on file Last Filed Vital Signs Vital Sign Reading Time Taken Comments Blood Pressure 106/58 12/22/2024 2:55 PM FLOWER SHOP MANAGER Pulse 90 12/22/2024 2:55 PM FLOWER SHOP MANAGER Temperature 36 C (96.8 F) 11/19/2022 9:32 PM FLOWER SHOP MANAGER Respiratory Rate 15 11/19/2022 9:32 PM FLOWER SHOP MANAGER Oxygen Saturation 98% 01/19/2024 10:06 AM FLOWER SHOP MANAGER Inhaled Oxygen Concentration - - Weight 94 kg (207 lb 4.8 oz) 12/22/2024 2:55 PM FLOWER SHOP MANAGER Height 154.9 cm (5' 1 ) 12/22/2024 2:55 PM FLOWER SHOP MANAGER Body Mass Index 39.17 12/22/2024 2:55 PM FLOWER SHOP MANAGER Plan of Treatment Not on file Procedures Procedure Name Priority Date/Time Associated Diagnosis Comments US BREAST RIGHT LIMITED Schedule Routine, Read Routine (OP Routine) 11/05/2024 2:31 PM FLOWER SHOP MANAGER Unspecified lump in right breast, subareolar DIAGNOSTIC MAMMOGRAM BILATERAL W COURTNEY Schedule Routine, Read Routine (OP Routine) 11/05/2024 1:36 PM FLOWER SHOP MANAGER Unspecified lump in right breast, subareolar from Last 3 Months Results * US Breast Right Limited (11/05/2024 2:31 PM FLOWER SHOP MANAGER) Anatomical Region Laterality Modality Breast Right Ultrasound 11/05/2024 2:49 PM FLOWER SHOP MANAGER Impressions 11/05/2024 2:49 PM FLOWER SHOP MANAGER Focal asymmetry in the upper slightly outer [...] Alpa Scherer M.D. Narrative 11/05/2024 2:49 PM FLOWER SHOP MANAGER EXAMINATION: BILATERAL DIGITAL DIAGNOSTIC MAMMOGRAM INCLUDING CAD [...] inal Result * Diagnostic Mammogram Bilateral W Courtney (11/05/2024 1:36 PM FLOWER SHOP MANAGER) Anatomical Region Laterality Modality Breast Bilateral Mammography 11/05/2024 2:49 PM FLOWER SHOP MANAGER Impressions 11/05/2024 2:49 PM FLOWER SHOP MANAGER Focal asymmetry in the upper slightly outer [...] Alpa Scherer M.D. Narrative 11/05/2024 2:49 PM FLOWER SHOP MANAGER EXAMINATION: BILATERAL DIGITAL DIAGNOSTIC MAMMOGRAM INCLUDING CAD [...] with the mammographic finding. Derek Almanza MD IMG MAMMO PROCEDURES F inal Result from Last 3 Months Insurance [facility] [employer] [facility] [employer] CHOICE PLUS Care Teams Speech Correction Assistant Relationship Specialty Start Date End Date Haydee Armenta NP [address] [place] [address] PCP - General 06/18/20
--- OUTSIDE RECORDS SUMMARY | 2025-01-31 19:20 | XMS_ITS | Clinical Summary ---
Author Organization [facility] Address [address] [place] [address] Phone Care Team Providers Care Phlebotomist Associate Name Role Phone Kathi, Haydee CORONADO CNP Primary Care Provider [phone] Allergies Active Allergy Reactions Criticality Noted Date Comments Penicillins Hives 11/19/2022 Medications No known medications Social History Tobacco Use Types Packs/Day Years Used Date Smoking Tobacco: Never Smokeless Tobacco: Never Tobacco Cessation:Counseling Given: Not Answered Alcohol Use Standard Drinks/Week Comments Never 0 (1 standard drink = 0.6 oz pur e alcohol) Comments Unknown Sex and Gender Information Value Date Recorded Sex Assigned at Not on file Legal Sex Female 11:53 PM CDT Gender Identity Not on file Sexual Orientation Not on file Last Filed Vital Signs Vital Sign Reading Time Taken Comments Blood Pressure 140/60 11/20/2022 1:57 AM MANAGER CREDIT COLLECTIONS Pulse 68 11/20/2022 1:57 AM MANAGER CREDIT COLLECTIONS Temperature 36.6 C (97.9 F) 11/19/2022 10:52 PM MANAGER CREDIT COLLECTIONS Respiratory Rate 18 11/20/2022 1:57 AM MANAGER CREDIT COLLECTIONS Oxygen Saturation 0% 11/20/2022 1:57 AM MANAGER CREDIT COLLECTIONS Inhaled Oxygen Concentration - - Weight 86.6 kg (191 lb) 11/19/2022 10:52 PM MANAGER CREDIT COLLECTIONS Height 154.9 cm (5' 1 ) 11/19/2022 10:52 PM MANAGER CREDIT COLLECTIONS Body Mass Index 36.09 11/19/2022 10:52 PM MANAGER CREDIT COLLECTIONS Plan of Treatment Health Maintenance Due Date Last Done Comments Hepatitis C Virus (HCV) Screening 1988 TdaP Immunization 1988 Hepatitis B Immunization (1 of 3 - 19+ 3-dose series) 2007 Pap Smear 2009 Cervical Cancer Screening (CCS) 2018 HPV/Cotest 2018 Influenza Immunization (#1) 2024 10/0 11/2015, 12/04/2013 SARS-COV-2 Immunization ( season) 2024 Respiratory Syncytial Virus (RSV) Immunization (Adult) (1 - 1-dose 75+ series) 2063 Meningococcal Immunization (ACWY) Aged Out No longer eligible b ased on patient's age to complete this topic Pneumococcal Immunization Combined Aged Out No longer eligible b ased on patient's age to complete this topic Rotavirus Immunization Aged Out No lo nger eligible based on patient's age to complete this topic Insurance [facility] Care Teams Phlebotomist Associate Relationship Specialty Start Date End Date Kathi, IVONNE Hubbard, EMMA [address] [place] [address] PCP - General Family Medicine 12/12/20
--- OUTSIDE RECORDS SUMMARY | 2025-01-31 19:20 | XMS_ITS | Patient Health Summary ---
Author Organization [facility] Address [address] [place] [address] Care Team Providers Care Rehabilitation Worker Name Role Phone Mercedes Scott Primary Care Provider [phone] Note from [facility],non-owned Affiliates and Associated Physician Practices is amultiple site organization consisting of ambulatory clinics and hospital sitesin [place], [place], [place] and [place]. This disclosure is being madepursuant to the Care Everywhere program and may not contain all information available regarding this patient. Last updated 18.[facility] [email or web address] Allergies * Penicillins(Urticaria) -Medium Criticality Medications * Be aware that medications may not be up to date on this document. Alwaysverify current medications with the patient. * SERTRALINE HCL PO * Fluticasone Propionate (FLONASE NA) Social History Tobacco Use Types Packs/Day Years [...] Mass Index 35.9 03/12/2019 11:08 AM CDT Procedures * STREP A SCREEN - POINT OF CARE (AMB) STL(Performed 08/06/2018) Performed for Strep pharyngitis Results * (ABNORMAL) STREP A SCREEN (08/06/2018 5:25 PM CDT) Strep A Rapid POCT Positive(A) Negative Strep A Internal Control Present Lot # [id number] Expiration Date 01/07/2020 Throat ENTIRE THROAT (SURFACE REGION OF NECK) / Unknown 08/06/2018 5:25 PM CDT Janay Cazares INFORMATION SYSTEMS PLANNER-[facility] - POIN T OF CARE ORDERABLES Care Teams Rehabilitation Worker Relationship Specialty Start Date End Date Mercedes Scott PA [address] [place] [address] PCP - General 08/06/18
--- OUTSIDE RECORDS SUMMARY | 2025-01-31 19:20 | XMS_ITS | Encounter Summary ---
Author Organization [facility] Address [address] [place] [address] Phone Care Team Providers Care Milk Pickup Truck Driver Name Role Phone Haydee Armenta APRN, CNP Primary Care Provider [phone] Encounter Details Date Type Department Care Team (Late st Contact Info) Description 02/02/2024 Transcribe Orders [facility] Central Scheduling [address] [place] [address] Yonatan Patterson MD [address] [place] [address] [id number] [place], [place] [id number] Social History Tobacco Use Types Packs/Day Years [...] documented as of this encounter Visit Diagnoses Not on filedocumented in this encounter Care Teams Milk Pickup Truck Driver Relationship Specialty Start Date End Date Haydee Armenta APRN, CNP [address] [place], [place] [id number] PCP - General Family Medicine 12/12/20 documented as of this encounter
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
== END 2025-01-31 19:58 | disposition home or self-care (01) ==
PROVIDERS: Emergency Provider Nurse Practitioner; PCP Nurse Practitioner Family
DX: L03.115 Cellulitis of right lower limb (principal); R73.03 Prediabetes; I34.1 Nonrheumatic mitral (valve) prolapse; I35.1 Nonrheumatic aortic (valve) insufficiency; F41.9 Anxiety disorder, unspecified
CPT/HCPCS: 99213; G0463

== ENCOUNTER 2025-08-10 13:32 | Emergency (ER) | payer OTHER, SELFPAY ==
[2025-08-10 13:36] VITALS: BP 115/60; PULSE 86; RESP 20; TEMP 36.7; O2SAT 100
--- OUTSIDE RECORDS SUMMARY | 2025-08-10 13:36 | XMS_ITS | Clinical Summary ---
Author Organization [facility] Address [address] [place] [address] Care Team Providers Care Can Labeler Name Role Phone Haydee Armenta DIRECTOR OF DIETARY Primary Care Provider Allergies Active Allergy Reactions Criticality Noted Date Comments Nitrofurantoin Hives Medium 12/22/2024 Penicillins Rash,Urticaria Medium 08/06/2018 Reaction: Rash, , Medications sertraline (ZOLOFT) 25 mg tablet 06/15/2020 Active cholecalciferol (VITAMIN D-3) 2000 unit capsule 1 capsule (2,000 Units total) Active cetirizine (ZyrTEC) 5 mg tablet Take 2 tablets (10 mg total) by mouth daily 04/13/2020 Active lansoprazole (PREVACID) 30 mg capsule Take 1 capsule (30 mg total) by mouth daily 06/17/2024 Active iron bis glycinat-vit C-FA-B12 (Gentle Iron) 28 mg iron-60mg -400 mcg-8 mcg capsule 12/16/2022 Active Active Problems Problem Noted Date Diagnosed Date Dyspnea on exertion 01/19/2024 Labile hypertension 01/19/2024 Palpitations 11/19/2021 Mitral valve prolapse 06/26/2020 Nonrheumatic tricuspid valve regurgitation 06/26 Dietary counseling 06/26/2020 Encounters Date Type Department Care Team Description 07/04/2025 11:00 AM CDT Office Visit [facility] Cardiology [address] [place] [address] Yonatan Patterson MD Lipid screening (Primary Dx); Nonrheumatic tricuspid valve regurgitation; Labile hypertension; Dyspnea on exertion 06/24/2025 7:30 AM CDT - 06/24/2025 11:59 PM CDT Hospital Encounter [facility] Nutrition and Diabetic Education 1 [facility] [id number] [place] [address] Izquierdo, Mery Calderon RD Discharge Disposition: Discharge to home or self care from Last 3 Months Surgical History Surgery Date Site/Laterality Comments CHOLECYSTECTOMY 2010 Cholecystectomy Medical History Medical History Date Comments Hx Other Medical 2010 Mitral valve pr olapse Mitral valve prolapse Gallstones Anxiety and depression Arthritis GERD (gastroesophageal reflux disease) Diabetes mellitus Borderline Migraines Family History Medical History Relation Name Comments Asthma Daughter Jimmy Godoy Diabetes Father Ciro Narka II Diabetes melli tus; Hypertension Father Ciro Narka II Hypertension; Other Father Ciro Narka II Alive and well ; Cancer Maternal [...] 2 Thalia Couch Diabetes Paternal Grandfather Ciro Narka Hypertension Paternal Grandfather Ciro Narka Breast cancer Paternal Grandmother Saima Proctor Cancer Paternal Grandmother Saima Proctor Relation Name Status Comments Brother Alive Daughter Jimmy Godoy Father Ciro Narka II Alive Maternal Grandfather Mahin Glass Maternal Grandmother Ivone Glass Mother Alive Mother's Sister 1 Iona Dehne Mother's Sister 2 Thalia Couch Paternal Grandfather Ciro Narka Paternal Grandmother Saima Proctor Social History Tobacco Use Types Packs/Day Years Used Date Smoking Tobacco: Never Smokeless Tobacco: Never Tobacco Cessation:Counseling Given: Not Answered Alcohol Use Standard Drinks/Week Comments No 0 (1 standard drink = 0.6 oz pur e alcohol) Comments No Sex and Gender Information Value Date Recorded Sex Assigned at Not on file Legal Sex Female 11:28 PM INSPECTOR SOLDERING Gender Identity Not on file Sexual Orientation Not on file Obstetrics History Para Term AB IAB SAB Ectopic Multiple Livin g Live Births 3 3 3 Date Outcome GA Total Labor Labor/2nd/3rd Weight Sex Type Anes PTL Roseanna A1 A5 Name Clin Term Term Term Last Filed Vital Signs Vital Sign Reading Time Taken Comments Blood Pressure 118/74 07/04/2025 11:09 AM CDT Pulse 78 07/04/2025 11:09 AM CDT Temperature 36 C (96.8 F) 11/19/2022 9:32 PM INSPECTOR SOLDERING Respiratory Rate 20 07/04/2025 11:09 AM CDT Oxygen Saturation 99% 07/04/2025 11:09 AM CDT Inhaled Oxygen Concentration - - Weight 85.3 kg (188 lb) 07/04/2025 11:09 AM CDT Height 154.9 cm (5' 1) 07/04/2025 11:09 AM CDT Body Mass Index 35.52 07/04/2025 11:09 AM CDT Plan of Treatment Health Maintenance Due Date Last Done Comments Cervical Cancer Screening 1988 Depression Screening 1988 Hepatitis C Screening 1988 DTaP/Tdap/Td Vaccine (1 - Tdap) 1999 Varicella Vaccines (1 of 2 - 13+ 2-dose series) 2001 Hepatitis B Screening 2006 Regular Well Visit/Exam 18-64 2006 HPV Vaccines (1 - 3-dose SCD M series) 2015 Influenza Vaccine (#1) 2025 3, 08/17/2016, 12/04/2013 Pneumococcal vaccine <65 Aged Out No longer eligible based on patient's age to complete this topic Procedures Procedure Name Priority Date/Time Associated Diagnosis Comments POCT LIPID PANEL Routine 07/04/2025 11:0 8 AM CDT Lipid screening from Last 3 Months Results * (ABNORMAL) POCT lipid panel (07/04/2025 11:08 AM CDT) Cholesterol, POC 145 <200 MG/DL HDL, POC 30(A) >=40 mg/dL Triglycerides, POC 87 <=149 mg/dL LDL Cholesterol POC 97 <=129 mg/dL Chol/HDL Ratio, POC 3.2 NONE Non-HDL Cholesterol, POC 114 NONE mg/dL Cholesterol Total, POC 145 30 - 199 mg/dL Capillary blood 07/04/2025 1 1:08 AM CDT Yonatan Patterson MD POINT OF CARE TEST O RDERABLES Final Result from Last 3 Months Insurance [facility] [facility] Care Teams Can Labeler Relationship Specialty Start Date End Date Haydee Armenta NP [address] [place] [address] PCP - General 06/18/20
--- OUTSIDE RECORDS SUMMARY | 2025-08-10 13:36 | XMS_ITS | Encounter Summary ---
Author Organization [facility] Address [address] [place] [address] Phone Care Team Providers Care Apprentice Architect Name Role Phone Haydee Armenta APRN, CNP Primary Care Provider [phone] Encounter Details Date Type Department Care Team (Late st Contact Info) Description 02/02/2024 Transcribe Orders [facility] Central Scheduling 1 [place] [address] Yonatan Patterson MD [address] [place] [address] [id number] [place] [address] Social History Tobacco Use Types Packs/Day Years [...] on filedocumented in this encounter Care Teams Apprentice Architect Relationship Specialty Start Date End Date Haydee Armenta APRN, CNP PCP - General Family Medicine 12/12/20 documented as of this encounter
--- OUTSIDE RECORDS SUMMARY | 2025-08-10 13:36 | XMS_ITS | Clinical Summary ---
Author Organization [facility] Address [address] [place] [address] Care Team Providers Care Cross Tie Tram Loader Name Role Phone Haydee Armenta IVONNE-EYEWEAR CONSULTANT Primary Care Provider [phone] Source Comments [facility],non-owned Affiliates and Associated Physician Practices is amultiple site organization consisting of ambulatory clinics and hospital sitesin [place], [place] and [place]. This disclosure is being madepursuant to the Care Everywhere program and may not contain all information available regarding this patient. Last updated 18.[facility] Allergies Active Allergy Reactions Criticality Noted Date Comments Penicillins Urticaria Medium 08/06/2018 Medications * Be aware that medications may not be up to date on this document. Alwaysverify current medications with the patient. SERTRALINE HCL PO Ac tive Fluticasone Propionate (FLONASE NA) Active Family History [...] at Not on file Legal Sex Female 2:55 PM CDT Gender Identity Not on file [...] 11:08 AM CDT Height 154.9 cm (5' 1) 03/12/2019 11:08 AM CDT Body Mass Index 35.9 03/12/2019 11:08 AM CDT Plan of Treatment Upcoming Encounters Date Type Department Care Team (Late st Contact Info) Description 09/12/2025 8:00 AM CDT Office Visit [facility] - Neurology [address] [place] [address], [place] [address] Vi Bernard, RN HYPERBARIC-EYEWEAR CONSULTANT [address] [place] [address] [place] [id number] Health Maintenance Due Date Last Done Comments HIV SCREENING 2003 HEPATITIS C SCREENING 06/01/2006 DTAP/TDAP/TD VACCINES (1 - Tdap) 2007 HEPATITIS B VACCINE (1 of 3 - 19+ 3-dose series) 2007 HPV VACCINE (1 - 3-dose SCDM series) 2015 DEPRESSION SCREENING 11/17/2024 COVID-19 VACCINE (1 - 2023-2 5 season) 2025 INFLUENZA VACCINE (#1) 2025 ZOSTER VACCINE (1 of 2) 2038 HIB [...] patient's age to complete this topic Insurance [facility] Care Teams Cross Tie Tram Loader Relationship Specialty Start Date End Date Haydee Armenta APRN-EMMA [address] [place] [id number] PCP - General Nurse Practitioner Family 08/08/25
--- OUTSIDE RECORDS SUMMARY | 2025-08-10 13:36 | XMS_ITS | Encounter Summary ---
Author Organization [facility] Address [address] [place] [address] Phone Care Team Providers Care Metal Burnisher Name Role Phone Haydee Armenta APRN, CNP Primary Care Provider [phone] Encounter Details Date Type Department Care Team (Latest Contact Info) Description 09/16/2023 Transcribe Orders [facility] Central Scheduling 1 [place] [address] Haydee Aremnta APRN, METEOROLOGY FACULTY MEMBER [address] [place] [address] Non-rheumatic tricuspid valve insufficiency (Primary [...] nonrheumatic documented in this encounter Care Teams Metal Burnisher Relationship Specialty Start Date End Date Haydee Armenta APRN, CNP PCP - General Family Medicine 12/12/20 documented as of this encounter
--- OUTSIDE RECORDS SUMMARY | 2025-08-10 13:36 | XMS_ITS | Clinical Summary ---
Author Organization [facility] Address [address] [place] [address] Phone Care Team Providers Care Md Pediatric Allergist Name Role Phone Kathi, Haydee CORONADO CNP Primary Care Provider [phone] Allergies Active Allergy Reactions Criticality Noted Date [...] Comments Blood Pressure 140/60 11/20/2022 1:57 AM CHIEF TRANSFER AND PUMPHOUSE OPERATOR Pulse 68 11/20/2022 1:57 AM CHIEF TRANSFER AND PUMPHOUSE OPERATOR Temperature 36.6 C (97.9 F) 11/19/2022 10:52 PM CHIEF TRANSFER AND PUMPHOUSE OPERATOR Respiratory Rate 18 11/20/2022 1:57 AM CHIEF TRANSFER AND PUMPHOUSE OPERATOR Oxygen Saturation 0% 11/20/2022 1:57 AM CHIEF TRANSFER AND PUMPHOUSE OPERATOR Inhaled Oxygen Concentration - - Weight 86.6 kg (191 lb) 11/19/2022 10:52 PM CHIEF TRANSFER AND PUMPHOUSE OPERATOR Height 154.9 cm (5' 1) 11/19/2022 10:52 PM CHIEF TRANSFER AND PUMPHOUSE OPERATOR Body Mass Index 36.09 11/19/2022 10:52 PM CHIEF TRANSFER AND PUMPHOUSE OPERATOR Plan of Treatment Health Maintenance Due Date Last Done Comments Hepatitis C Virus (HCV) Screening 1988 TdaP Immunization 1988 Hepatitis B Immunization (1 of 3 - 19+ 3-dose series) 2007 Pap Smear 2009 Human Papillomavirus (HPV) Immunization (1 - 3-dose SCDM series) 2015 Cervical Cancer Screening (CCS) 2018 HPV/Cotest 2018 Influenza Immunization (#1) 07/18/202511/2015, 12/04/2013 SARS-COV-2 Immunization ( season) 2025 Respiratory Syncytial Virus (RSV) Immunization (Adult) (1 - 1-dose 75+ series) 2063 Meningococcal Immunization (ACWY) Aged Out No longer eligible b ased on patient's age to complete this topic Pneumococcal Immunization Combined Aged Out No longer eligible b ased on patient's age to complete this topic Rotavirus Immunization Aged Out No lo nger eligible based on patient's age to complete this topic Insurance [facility] Care Teams Md Pediatric Allergist Relationship Specialty Start Date End Date Haydee Armenta APRN, CNP PCP - General Family Medicine 12/12/20
--- NOTE | 2025-08-10 13:41 | ED.HA ---
HPI - Headache General Chief Complaint: Headache Stated Complaint: Headache/Neck Pain Time Seen by Provider: 08/10/25 13:41 Source: patient Mode of arrival: ambulatory Limitations: no limitations History of Present Illness HPI Narrative: 35 yo F presents with c/o neck pain. reports hx of intermittent pain from old neck injury. Told her PCP yesterday that she was in pain but ignored her complaint per pt and focused on prescribing her preventative migraine medication. Pt states she his not having a migraine at this time. Last took ibuprofen around 10am. concerned she may have pinched nerve. Denies radiation of pain to upper extremities. All systems reviewed and negative except as noted above. Related Data Home Medications ?Medication ?Instructions ?Recorded ?Confirmed ?Last Taken ?Type sertraline 25 mg tablet 25 mg PO DAILY 06/08/20 02/24/23 Unknown History Otc Acid Medical Technologist Hematology 12/20/23 Unknown History Otc Allergy Med. 12/20/23 Unknown History Otc Iron Supplement 12/20/23 Unknown History cholecalciferol (vitamin D3) 50 12/20/23 Unknown History mcg (2,000 unit) capsule lansoprazole 30 mg capsule,delayed mg 08/10/25 Unknown History release Allergies Allergy/AdvReac Type Severity Reaction Status Date / Time Penicillins Allergy Intermediate Hives / Verified 08/10/25 13:35 Red Face nitrofurantoin (From Allergy Unknown Verified 08/10/25 13:36 Macrobid) PMFSH Past Medical History Medical History Anxiety Aortic regurgitation Mitral valve prolapse Borderline diabetic Surgical History Surgical History Hx of cholecystectomy History of tonsillectomy Social History Social History Smoking status: Never smoker Alcohol intake: never Substance use: never Living arrangements: with family Gender identity (if verbalized by the patient): Female Comments At time of signature, agree with nursing past medical, surgical, social and family history. There is no relevant family history pertinent to the presenting complaint. Exam Narrative: GENERAL: This is a well-nourished, well-developed patient, in no apparent distress. HEAD: normocephalic, atraumatic. EYES: PERRL. Sclera clear/white. Vision is grossly intact. EARS: External ears normal NOSE: External nose normal NECK: Neck supple, No midline tenderness without lymphadenopathy, masses or thyromegaly. normal range of motion. Generalized muscular tenderness. CARDIOVASCULAR: Regular rate and rhythm without murmurs, gallops, or rubs. RESPIRATORY: Clear to auscultation. Breath sounds equal bilaterally. No wheezes, rales, or rhonchi. SKIN: warm, Dry, intact with no suspicious lesions or rash, good texture and turgor. NEURO: awake, alert, and oriented to person, place and time. There were no obvious focal neurologic abnormalities. EXTREMITIES: No joint tenderness, effusion, or edema noted. Course Course Level of Care: Express Care Visit Vital Signs Vital signs: Vital Signs Temperature 36.7 C 08/10/25 13:36 Pulse Rate 86 08/10/25 13:36 Respiratory Rate 20 08/10/25 13:36 Blood Pressure 115/60 08/10/25 13:36 Pulse Oximetry 100 08/10/25 13:36 Oxygen Delivery Room Air 08/10/25 13:36 Temperature 36.7 C 08/10/25 13:36 Pulse Rate 86 08/10/25 13:36 Respiratory Rate 20 08/10/25 13:36 Blood Pressure 115/60 08/10/25 13:36 Pulse Oximetry 100 08/10/25 13:36 Oxygen Delivery Room Air 08/10/25 13:36 Reviewed MDM - Headache MDM Narrative Medical decision making narrative: patient here for chronic neck pain. Reports intermittent pain caused by old neck injury. Pain was not addressed yesterday at PCP appointment. Patient concerned she has pinched nerve but she does not have any radiating pain into upper extremities. Normal range of motion. Generalized muscular tenderness on exam. Will treat with Medrol Dosepak and muscle relaxant. Recommend follow-up with primary care physician for further evaluation. No neuro deficits. Discharge Plan Discharge Clinical Impression: Cervical muscle strain Qualifiers: Encounter type: initial encounter Qualified Code(s): S16.1XXA - Strain of muscle, fascia and tendon at neck level, initial encounter Patient Disposition: Home Condition: Stable Instructions: Cervical Strain (ED) Additional Instructions: Take medications as prescribed. Methocarbamol as a muscle relaxant may make you drowsy. Do not drive while taking this medication. Continue ibuprofen or Tylenol every 6-8 hours as needed for pain. Alternate between ice and heat. Follow-up with your primary care physician for further evaluation of neck pain. Patient Language: Swedish Prescriptions: New methocarbamol 750 mg tablet 750 mg PO Q8H PRN (Reason: muscle pain/spasm) Qty: 30 0RF methylprednisolone [Medrol (Sebastien)] 4 mg tablets,dose pack See Rx Instructions PO .COMPLEX Qty: 21 0RF Rx Instructions: orally per package directions No Action sertraline 25 mg Tablet 25 mg PO DAILY cholecalciferol (vitamin D3) 50 mcg (2,000 unit) capsule Otc Allergy Med. Otc Iron Supplement Otc Acid Medical Technologist Hematology methylprednisolone [Medrol (Sebastien)] 4 mg tablets,dose pack See Rx Instructions .ROUTE .COMPLEX Qty: 21 0RF Rx Instructions: orally per package directions lansoprazole 30 mg capsule,delayed release(DR/EC) Follow-up/Referrals: Armenta,Haydee Chawla APN [Primary Care Provider, Unknown] Time of Disposition: 13:51
== END 2025-08-10 14:00 | disposition home or self-care (01) ==
PROVIDERS: Emergency Provider Nurse Practitioner Family; PCP Nurse Practitioner Family
DX: S16.1XXA Strain of muscle, fascia and tendon at neck level, initial encounter (principal); X58.XXXA Exposure to other specified factors, initial encounter; I34.1 Nonrheumatic mitral (valve) prolapse; I35.1 Nonrheumatic aortic (valve) insufficiency; R73.03 Prediabetes; F41.9 Anxiety disorder, unspecified
CPT/HCPCS: 99213; G0463